=== PATIENT | male | born 1940 | race Caucasian/White ===

== ENCOUNTER → 2020-06-17 | Outpatient (CLI) | payer MEDICARE | END | disposition home or self-care (01) | LOC: OIH 08:01 | PROVIDERS: ATTEND Nurse Practitioner Adult Health | DX: J90 Pleural effusion, not elsewhere classified (principal); J98.11 Atelectasis; M47.814 Spondylosis without myelopathy or radiculopathy, thoracic region; I70.0 Atherosclerosis of aorta; R63.4 Abnormal weight loss | CPT/HCPCS: 71046 ==

== ENCOUNTER → 2020-06-21 | Outpatient (CLI) | payer MEDICARE | END | disposition home or self-care (01) | LOC: RAH 13:39 | PROVIDERS: ATTEND Nurse Practitioner Adult Health | DX: J92.9 Pleural plaque without asbestos (principal); K76.9 Liver disease, unspecified; J90 Pleural effusion, not elsewhere classified | CPT/HCPCS: 71250 ==